=== PATIENT | male | born 1960 | race Caucasian/White ===

== ENCOUNTER 2017-02-07 16:27 | Inpatient (IN) | payer BC ==
[~2017-02-07] VITALS: Ht 182.9 cm; Wt 69.8 kg
[~2017-02-07 16:27] MED LIST: COZAAR; CRESTOR; IMURAN 50MG TAB50 MG PO; LOMOTIL 0.025 M1 TAB; LORTAB 5/500 501 TAB PO; TRICOR 48MG48 MG PO; ZIAC 5/6.25MG T1 TAB PO
[2017-02-07] MEDS ORDERED: CARAFATE 1GM1 G PO (17:34)
[2017-02-07] MEDS ORDERED: PROZAC 20MG20 MG PO (17:37)
[2017-02-07] MEDS ORDERED: PROSCAR 5MG5 MG PO (17:38)
[2017-02-07] MEDS ORDERED: PRILOSEC 20MG20 MG PO (17:39)
[2017-02-07] MEDS ORDERED: VITAMIND3 5000 (17:40)
[2017-02-07] MEDS ORDERED: DEPO-TESTOS100 MG/ML IM (17:44)
[2017-02-07] MEDS ORDERED: MULTIPLE VITAMI1 CAP PO (17:44)
[2017-02-07 17:45] LABS: PH 6 (5-8); SQUAMOUS EPITHELIAL None Seen /hpf; URINE APPEARANCE Hazy; URINE BACTERIA None Seen /hpf; URINE BILIRUBIN Negative (NEGATIVE); URINE BLOOD Negative (NEGATIVE); URINE COLOR Amber; URINE GLUCOSE Negative (NEGATIVE); URINE KETONE Negative (NEGATIVE); URINE RBC 0-2 /hpf; URINE UROBILINOGEN Negative (NEGATIVE); URINE WBC 0-2 /hpf
[2017-02-07 17:46] LABS: ADJUSTED CALCIUM 9.3 mg/dL (8.4-10.2); ALBUMIN 2.9 gm/dL (3.5-5.0); BILIRUBIN,TOTAL 0.6 mg/dL (0.0-1.0); CALCIUM 8.4 mg/dL (8.4-10.2); CREATININE, serum 1.07 mg/dL (0.66-1.25); POTASSIUM 4.7 mmol/L (3.4-5.0); TOTAL PROTEIN 6.9 gm/dL (6.4-8.2)
[2017-02-07 17:48] LABS: MEAN CELL VOLUME 86 fl (80.0-100.0); MEAN CORPUSCULAR HGB CONC 32 g/dl (33.0-37.0); MEAN PLATELET VOLUME 9.2 fl (7.4-10.4); PLATELET COUNT 717 K/mm3 (130-400); RED BLOOD COUNT 3.44 M/mm3 (4.20-5.60); REDCELL DISTRIBUTION WIDTH-CV 16.8 % (11.5-14.5); WHITE BLOOD COUNT 14.9 K/mm3 (4.8-10.8)
[2017-02-07 18:07] LABS: HEMATOCRIT 29.7 % (42.0-52.0); HEMOGLOBIN 9.4 g/dl (13.5-18.0); MEAN CORPUSCULAR HEMOGLOBIN 27 pg (27.0-31.0)
[2017-02-07 18:10] LABS: ADD PATHOLOGY DIFF REVIEW NO
[2017-02-07 18:40] LABS: ANISOCYTOSIS 1+; BAND 18 % (0-10); HYPOCHROMIA 1+; NEUTROPHILS 62 % (42.0-75.2); PLATELET ESTIMATE INCREASED (NORMAL); POLYCHROMASIA 1+; TOTAL CELLS COUNTED 100
[2017-02-07 21:43] VITALS: BP 101/57; PULSE 104; TEMP 99.3
[2017-02-08 06:02] LABS: MEAN CELL VOLUME 84 fl (80.0-100.0); MEAN CORPUSCULAR HGB CONC 32 g/dl (33.0-37.0); MEAN PLATELET VOLUME 8.9 fl (7.4-10.4); RED BLOOD COUNT 2.67 M/mm3 (4.20-5.60); REDCELL DISTRIBUTION WIDTH-CV 16.4 % (11.5-14.5); WHITE BLOOD COUNT 14.7 K/mm3 (4.8-10.8)
[2017-02-08 06:55] LABS: HEMATOCRIT 22.4 % (42.0-52.0); HEMOGLOBIN 7.2 g/dl (13.5-18.0); MEAN CORPUSCULAR HEMOGLOBIN 27 pg (27.0-31.0)
[2017-02-08 06:56] LABS: ADD PATHOLOGY DIFF REVIEW NO; PLATELET COUNT 468 K/mm3 (130-400)
[2017-02-08 07:24] LABS: BAND 52 % (0-10); EOSINOPHIL 1 % (0-4); NEUTROPHILS 40 % (42.0-75.2); PLATELET ESTIMATE INCREASED (NORMAL); TOTAL CELLS COUNTED 100
[2017-02-08 09:29] VITALS: BP 94/42; PULSE 96; TEMP 98.2
[2017-02-08 11:21] LABS: HEMATOCRIT 24.5 % (42.0-52.0); HEMOGLOBIN 7.7 g/dl (13.5-18.0)
[2017-02-08 11:27] LABS: CALCIUM 8.2 mg/dL (8.4-10.2); CREATININE, serum 1.09 mg/dL (0.66-1.25); POTASSIUM 4.7 mmol/L (3.4-5.0)
[2017-02-08 13:57] VITALS: BP 123/62; PULSE 93
[2017-02-08 16:11] VITALS: BP 133/67; PULSE 101; TEMP 98.3
[2017-02-08 17:27] VITALS: BP 124/64; PULSE 111; TEMP 99.8
[2017-02-08 22:28] VITALS: BP 115/56; PULSE 102; TEMP 99.5
[2017-02-09] VITALS (11 sets, daily range): BP systolic 103–141; BP diastolic 52–75; PULSE 88–104; TEMP 98–99.6
[2017-02-09 06:13] LABS: MEAN CELL VOLUME 85 fl (80.0-100.0); MEAN CORPUSCULAR HGB CONC 33 g/dl (33.0-37.0); MEAN PLATELET VOLUME 8.8 fl (7.4-10.4); PLATELET COUNT 395 K/mm3 (130-400); RED BLOOD COUNT 2.35 M/mm3 (4.20-5.60); REDCELL DISTRIBUTION WIDTH-CV 16.5 % (11.5-14.5); WHITE BLOOD COUNT 7.3 K/mm3 (4.8-10.8)
[2017-02-09 06:22] LABS: HEMOGLOBIN 6.5 g/dl (13.5-18.0); MEAN CORPUSCULAR HEMOGLOBIN 28 pg (27.0-31.0)
[2017-02-09 06:31] LABS: ADJUSTED CALCIUM 9.2 mg/dL (8.4-10.2); BILIRUBIN,TOTAL 0.4 mg/dL (0.0-1.0); C-REACTIVE PROTEIN 8.8 mg/dL (0.0-0.9); CALCIUM 7.6 mg/dL (8.4-10.2); CREATININE, serum 0.86 mg/dL (0.66-1.25); POTASSIUM 3.8 mmol/L (3.4-5.0)
[2017-02-09 08:57] LABS: RETIC % 1.5 % (0.5-3.52)
[2017-02-09 10:07] LABS: TOTAL IRON BINDING CAPACITY 177 ug/dL (261-462)
[2017-02-09 10:34] LABS: FERRITIN 96 ng/mL (18-464)
[2017-02-09 15:48] LABS: HEMATOCRIT 22.2 % (42.0-52.0); HEMOGLOBIN 7.3 g/dl (13.5-18.0)
[2017-02-10 00:07] VITALS: BP 107/64; PULSE 98; TEMP 97.9
[2017-02-10 04:06] VITALS: BP 113/67; PULSE 88; TEMP 98
[2017-02-10 04:43] LABS: BASO % 0.6 % (0.0-2.0); GRAN # 2.7 (1.4-6.5); GRAN % 78.3 % (42.2-75.2); LYMPH # 0.4 (1.2-3.4); LYMPH % 12.6 % (20.0-51.0); MEAN CELL VOLUME 84 fl (80.0-100.0); MEAN CORPUSCULAR HGB CONC 33 g/dl (33.0-37.0); MEAN PLATELET VOLUME 8.9 fl (7.4-10.4); MONO # 0.3 (0.1-0.6); MONO % 7.3 % (1.7-9.3); PLATELET COUNT 374 K/mm3 (130-400); RED BLOOD COUNT 2.89 M/mm3 (4.20-5.60); REDCELL DISTRIBUTION WIDTH-CV 16.2 % (11.5-14.5); WHITE BLOOD COUNT 3.4 K/mm3 (4.8-10.8)
[2017-02-10 04:44] LABS: HEMATOCRIT 24.2 % (42.0-52.0); HEMOGLOBIN 7.9 g/dl (13.5-18.0); MEAN CORPUSCULAR HEMOGLOBIN 27 pg (27.0-31.0)
[2017-02-10 07:56] LABS: CALCIUM 7.7 mg/dL (8.4-10.2); CREATININE, serum 0.75 mg/dL (0.66-1.25); MAGNESIUM 1.8 mg/dL (1.6-2.3)
[2017-02-10 10:09] VITALS: BP 121/69; PULSE 84; TEMP 97.8
[2017-02-10 13:41] VITALS: BP 132/69; PULSE 77; TEMP 97.9
[2017-02-10 17:25] VITALS: BP 135/72; PULSE 88; TEMP 97.5
[2017-02-10 23:11] VITALS: BP 124/60; PULSE 82; TEMP 97.9
[2017-02-11 01:47] VITALS: BP 129/74; PULSE 81; TEMP 97.6
[2017-02-11 05:47] VITALS: BP 130/71; PULSE 65; TEMP 97.7
[2017-02-11 08:50] VITALS: BP 131/70; PULSE 78; TEMP 97.6
[2017-02-11] MEDS ORDERED: FERROUS SU325 MG/TAB PO (09:15)
[2017-02-11] MEDS ORDERED: FLAGYL500 MG PO (09:15)
[2017-02-11] MEDS ORDERED: CIPRO 500MG TA500 MG PO (09:15)
[2017-02-11] MEDS ORDERED: PREDNISONE10 MG PO (09:25)
[2017-02-11] MEDS ORDERED: FENTANYL 25 MCG TD ×2 (09:27→10:43)
[2017-02-11] MEDS ORDERED: NORCO 325 MG-7.1 TAB PO ×2 (09:27→10:43)
[2017-02-11] MEDS ORDERED: ZOFRAN ODT4 MG PO (10:42)
== END 2017-02-11 13:55 | disposition home or self-care (01) | DRG 391 ==
LOC: COL.ER 16:27 → SURG 20:46
PROVIDERS: Family Medicine; Internal Medicine Gastroenterology; Nurse Practitioner
DX: K52.9 Noninfective gastroenteritis and colitis, unspecified (principal); E43 Unspecified severe protein-calorie malnutrition; K50.00 Crohn's disease of small intestine without complications; I10 Essential (primary) hypertension; D64.9 Anemia, unspecified; Z87.891 Personal history of nicotine dependence
CPT/HCPCS: 99222-AI; 99232-AI; 99233-AI; 99239; C9113; J0744; J1170; J2405; J2930; J7030; P9016; Q9967

== ENCOUNTER 2017-02-16 02:01 | Emergency (ER) | payer BC ==
[~2017-02-16] VITALS: Ht 182.9 cm; Wt 68.2 kg
[~2017-02-16 02:01] MED LIST changes: +CARAFATE 1GM1 G PO; +CIPRO 500MG TA500 MG PO; +DEPO-TESTOS100 MG/ML IM; +FENTANYL 25 MCG TD; +FERROUS SU325 MG/TAB PO; +FLAGYL500 MG PO; +MULTIPLE VITAMI1 CAP PO; +NORCO 325 MG-7.1 TAB PO; +PREDNISONE10 MG PO; +PRILOSEC 20MG20 MG PO; +PROSCAR 5MG5 MG PO; +PROZAC 20MG20 MG PO; +VITAMIND3 5000; +ZOFRAN ODT4 MG PO
[2017-02-16 02:03] VITALS: TEMP 98
[2017-02-16 02:35] LABS: MEAN CELL VOLUME 86 fl (80.0-100.0); MEAN CORPUSCULAR HGB CONC 32 g/dl (33.0-37.0); MEAN PLATELET VOLUME 9.3 fl (7.4-10.4); PLATELET COUNT 437 K/mm3 (130-400); RED BLOOD COUNT 2.56 M/mm3 (4.20-5.60); WHITE BLOOD COUNT 14.5 K/mm3 (4.8-10.8)
[2017-02-16 02:40] LABS: ADD PATHOLOGY DIFF REVIEW NO; HEMATOCRIT 22.1 % (42.0-52.0); HEMOGLOBIN 7.1 g/dl (13.5-18.0); MEAN CORPUSCULAR HEMOGLOBIN 28 pg (27.0-31.0)
[2017-02-16 02:48] LABS: BILIRUBIN,TOTAL 0.3 mg/dL (0.0-1.0); C-REACTIVE PROTEIN 1.2 mg/dL (0.0-0.9); CALCIUM 7.4 mg/dL (8.4-10.2); CREATININE, serum 1.03 mg/dL (0.66-1.25); POTASSIUM 3.6 mmol/L (3.4-5.0); TOTAL PROTEIN 4.8 gm/dL (6.4-8.2)
[2017-02-16 02:55] LABS: INR 1.3 (0.8-3.0); PROTHROMBIN TIME 14.4 SECONDS (9.7-12.8)
[2017-02-16 03:21] LABS: BAND 43 % (0-10); METAMYELOCYTE 1 % (0-0); NEUTROPHILS 37 % (42.0-75.2); TOTAL CELLS COUNTED 100
[2017-02-16 04:48] VITALS: BP 139/81; PULSE 79
== END 2017-02-16 04:48 | disposition short-term general hospital (02) ==
LOC: COL.ER 02:01
PROVIDERS: Family Medicine
DX: K92.2 Gastrointestinal hemorrhage, unspecified (principal); I95.9 Hypotension, unspecified; D64.9 Anemia, unspecified
CPT/HCPCS: J7030; Q9967

== ENCOUNTER → 2017-03-01 | Outpatient (CLI) | payer BC | LOC: COL.RAD 09:17 | DX: K26.7 Chronic duodenal ulcer without hemorrhage or perforation (principal); K63.89 Other specified diseases of intestine | CPT/HCPCS: Q9967 ==

== ENCOUNTER 2017-04-24 03:25 | Inpatient (IN) | payer BC ==
[2017-04-24] VITALS (496 sets, daily range): BP systolic 125–188; BP diastolic 76–112; PULSE 97–134; TEMP 97.2–98.5; O2SAT 93–100
[~2017-04-24] VITALS: Ht 182.9 cm; Wt 73.0 kg
[2017-04-24] MEDS ORDERED: LOMOTIL 0.025 M1 TAB PO (03:27)
[2017-04-24] MEDS ORDERED: IMURAN 50MG TAB50 MG PO (03:29)
[2017-04-24 03:46] LABS: BASO # 0.1 (0.0-0.2); BASO % 0.4 % (0.0-2.0); EOS % 0.3 % (0-4.0); GRAN # 9.5 (1.4-6.5); GRAN % 77.8 % (42.2-75.2); HEMATOCRIT 50.1 % (42.0-52.0); HEMOGLOBIN 16.4 g/dl (13.5-18.0); LYMPH # 1.6 (1.2-3.4); LYMPH % 12.8 % (20.0-51.0); MEAN CELL VOLUME 94 fl (80.0-100.0); MEAN CORPUSCULAR HEMOGLOBIN 31 pg (27.0-31.0); MEAN CORPUSCULAR HGB CONC 33 g/dl (33.0-37.0); MEAN PLATELET VOLUME 9.8 fl (7.4-10.4); MONO % 8.4 % (1.7-9.3); PLATELET COUNT 315 K/mm3 (130-400); RED BLOOD COUNT 5.32 M/mm3 (4.20-5.60); WHITE BLOOD COUNT 12.2 K/mm3 (4.8-10.8)
[2017-04-24 03:58] LABS: ADJUSTED CALCIUM 9.5 mg/dL (8.4-10.2); ALANINE AMINOTRANSFERASE 32 U/L (21-72); ALBUMIN 4.6 gm/dL (3.5-5.0); ALKALINE PHOSPHATASE 62 U/L (50-136); ANION GAP 11 mmol/L (7-16); BILIRUBIN,TOTAL 0.5 mg/dL (0.0-1.0); BLOOD UREA NITROGEN 8 mg/dL (9-20); CARBON DIOXIDE 22 mmol/L (22-30); CHLORIDE 104 mmol/L (98-107); CREATININE, serum 0.79 mg/dL (0.66-1.25); GLUCOSE 112 mg/dL (74-106); LIPASE 39 U/L (23-300); SODIUM 137 mmol/L (137-145); TOTAL PROTEIN 7.9 gm/dL (6.4-8.2)
[2017-04-24 04:01] LABS: C-REACTIVE PROTEIN < 0.5 mg/dL (0.0-0.9)
[2017-04-24] MEDS ORDERED: COZAAR100 MG PO (07:38)
[2017-04-24] MEDS ORDERED: ZIAC 10/6.25M1 UDTAB PO (07:38)
[2017-04-24] MEDS ORDERED: HUMIRA40 MG/0.8 SQ (07:39)
[2017-04-24] MEDS ORDERED: LOFIBRA160 MG PO (07:39)
[2017-04-24 10:06] LABS: PROTHROMBIN TIME 11.3 SECONDS (9.7-12.8)
[2017-04-24 10:09] LABS: PARTIAL THROMBOPLASTIN TIME 30.3 SECONDS (26.0-37.0)
[2017-04-24 16:26] LABS: MEAN CELL VOLUME 96 fl (80.0-100.0); MEAN CORPUSCULAR HEMOGLOBIN 31 pg (27.0-31.0); MEAN CORPUSCULAR HGB CONC 32 g/dl (33.0-37.0); MEAN PLATELET VOLUME 9.9 fl (7.4-10.4); PLATELET COUNT 283 K/mm3 (130-400); RED BLOOD COUNT 4.68 M/mm3 (4.20-5.60)
[2017-04-24 16:29] LABS: ADD PATHOLOGY DIFF REVIEW NO; HEMOGLOBIN 14.4 g/dl (13.5-18.0); WHITE BLOOD COUNT 20.3 K/mm3 (4.8-10.8)
[2017-04-24 16:42] LABS: ADJUSTED CALCIUM 8.9 mg/dL (8.4-10.2); ALBUMIN 2.7 gm/dL (3.5-5.0); BILIRUBIN,TOTAL 0.5 mg/dL (0.0-1.0); CALCIUM 7.9 mg/dL (8.4-10.2); CREATININE, serum 0.83 mg/dL (0.66-1.25); POTASSIUM 4.3 mmol/L (3.4-5.0); TOTAL PROTEIN 5.3 gm/dL (6.4-8.2)
[2017-04-24 16:43] LABS: BAND 31 % (0-10); LYMPHOCYTE 2 % (20.0-51.0); NEUTROPHILS 62 % (42.0-75.2); PLATELET ESTIMATE NORMAL (NORMAL); TOTAL CELLS COUNTED 100
[2017-04-25] VITALS (663 sets, daily range): BP systolic 124–159; BP diastolic 78–88; PULSE 103–118; TEMP 97.7–100.1; O2SAT 89–100
[2017-04-25 05:24] LABS: BASO % 0.1 % (0.0-2.0); GRAN # 12.5 (1.4-6.5); HEMATOCRIT 42.6 % (42.0-52.0); HEMOGLOBIN 13.3 g/dl (13.5-18.0); LYMPH # 0.8 (1.2-3.4); LYMPH % 5.5 % (20.0-51.0); MEAN CELL VOLUME 99 fl (80.0-100.0); MEAN CORPUSCULAR HEMOGLOBIN 31 pg (27.0-31.0); MEAN CORPUSCULAR HGB CONC 31 g/dl (33.0-37.0); MEAN PLATELET VOLUME 10.3 fl (7.4-10.4); MONO # 1.5 (0.1-0.6); PLATELET COUNT 260 K/mm3 (130-400); RED BLOOD COUNT 4.32 M/mm3 (4.20-5.60); WHITE BLOOD COUNT 14.9 K/mm3 (4.8-10.8)
[2017-04-25 05:34] LABS: CALCIUM 8.2 mg/dL (8.4-10.2); CREATININE, serum 0.85 mg/dL (0.66-1.25); MAGNESIUM 1.4 mg/dL (1.6-2.3); POTASSIUM 4.6 mmol/L (3.4-5.0)
[2017-04-26 02:00] VITALS: BP 153/88; PULSE 105; TEMP 98.3
[2017-04-26 06:00] VITALS: BP 157/88; PULSE 97; TEMP 98.2
[2017-04-26 06:49] LABS: ADD PATHOLOGY DIFF REVIEW NO
[2017-04-26 07:04] LABS: CALCIUM 7.9 mg/dL (8.4-10.2); CREATININE, serum 0.72 mg/dL (0.66-1.25); MAGNESIUM 1.7 mg/dL (1.6-2.3); POTASSIUM 3.8 mmol/L (3.4-5.0)
[2017-04-26 07:22] LABS: HEMATOCRIT 38.3 % (42.0-52.0); MEAN CELL VOLUME 99 fl (80.0-100.0); MEAN CORPUSCULAR HEMOGLOBIN 31 pg (27.0-31.0); MEAN CORPUSCULAR HGB CONC 31 g/dl (33.0-37.0); MEAN PLATELET VOLUME 10.6 fl (7.4-10.4); PLATELET COUNT 225 K/mm3 (130-400); RED BLOOD COUNT 3.89 M/mm3 (4.20-5.60); WHITE BLOOD COUNT 7.2 K/mm3 (4.8-10.8)
[2017-04-26 07:46] LABS: BAND 9 % (0-10); EOSINOPHIL 1 % (0-4); LYMPHOCYTE 16 % (20.0-51.0); NEUTROPHILS 66 % (42.0-75.2); PLATELET ESTIMATE NORMAL (NORMAL); TOTAL CELLS COUNTED 100
[2017-04-26 09:36] VITALS: BP 156/92; PULSE 95; TEMP 98.5
[2017-04-26 13:40] VITALS: BP 162/88; PULSE 92; TEMP 98.5
[2017-04-26 17:16] VITALS: BP 155/93; PULSE 97; TEMP 98.8
[2017-04-26 21:55] VITALS: BP 153/86; PULSE 99; TEMP 98.2
[2017-04-27 02:10] VITALS: BP 132/84; PULSE 87; TEMP 98.2
[2017-04-27 05:38] VITALS: BP 135/81; PULSE 90; TEMP 97.6
[2017-04-27 06:56] LABS: BASO % 0.5 % (0.0-2.0); EOS # 0.1 (0.0-0.7); EOS % 1.7 % (0-4.0); GRAN # 2.7 (1.4-6.5); GRAN % 64.5 % (42.2-75.2); HEMATOCRIT 37.3 % (42.0-52.0); LYMPH # 0.8 (1.2-3.4); LYMPH % 18.4 % (20.0-51.0); MEAN CELL VOLUME 97 fl (80.0-100.0); MEAN CORPUSCULAR HEMOGLOBIN 31 pg (27.0-31.0); MEAN CORPUSCULAR HGB CONC 32 g/dl (33.0-37.0); MEAN PLATELET VOLUME 10.1 fl (7.4-10.4); MONO # 0.6 (0.1-0.6); MONO % 14.7 % (1.7-9.3); PLATELET COUNT 220 K/mm3 (130-400); RED BLOOD COUNT 3.86 M/mm3 (4.20-5.60); WHITE BLOOD COUNT 4.2 K/mm3 (4.8-10.8)
[2017-04-27 06:58] LABS: HEMOGLOBIN 11.9 g/dl (13.5-18.0)
[2017-04-27 07:14] LABS: CALCIUM 8.2 mg/dL (8.4-10.2); CREATININE, serum 0.64 mg/dL (0.66-1.25); POTASSIUM 3.7 mmol/L (3.4-5.0)
[2017-04-27 09:09] VITALS: BP 150/86; PULSE 92; TEMP 89.1
[2017-04-27 13:57] VITALS: BP 146/86; PULSE 96; TEMP 98.6
[2017-04-27 20:52] VITALS: BP 158/92; PULSE 91; TEMP 98
[2017-04-28 03:02] VITALS: BP 160/96; PULSE 85; TEMP 98
[2017-04-28 05:58] VITALS: BP 148/95; PULSE 84; TEMP 98.2
[2017-04-28 08:59] VITALS: BP 166/91; PULSE 76; TEMP 97.9
[2017-04-28] MEDS ORDERED: FENTANYL 25 MCG TD (09:50)
[2017-04-28 12:32] VITALS: BP 151/86; PULSE 77; TEMP 98.2
[2017-04-28 16:51] VITALS: BP 162/82; PULSE 93; TEMP 97.5
[2017-04-28 22:52] VITALS: BP 149/85; PULSE 84; TEMP 97.7
[2017-04-29 01:52] VITALS: BP 153/94; PULSE 93; TEMP 98.1
[2017-04-29 06:32] VITALS: BP 156/93; PULSE 95; TEMP 97.7
[2017-04-29 07:15] LABS: BASO % 0.5 % (0.0-2.0); EOS # 0.1 (0.0-0.7); EOS % 2.3 % (0-4.0); GRAN # 4.2 (1.4-6.5); GRAN % 68.8 % (42.2-75.2); HEMATOCRIT 39.2 % (42.0-52.0); HEMOGLOBIN 12.6 g/dl (13.5-18.0); LYMPH # 1.1 (1.2-3.4); LYMPH % 17.9 % (20.0-51.0); MEAN CELL VOLUME 94 fl (80.0-100.0); MEAN CORPUSCULAR HEMOGLOBIN 30 pg (27.0-31.0); MEAN CORPUSCULAR HGB CONC 32 g/dl (33.0-37.0); MEAN PLATELET VOLUME 9.9 fl (7.4-10.4); MONO # 0.6 (0.1-0.6); MONO % 10.2 % (1.7-9.3); PLATELET COUNT 269 K/mm3 (130-400); RED BLOOD COUNT 4.17 M/mm3 (4.20-5.60); WHITE BLOOD COUNT 6.1 K/mm3 (4.8-10.8)
[2017-04-29 07:24] LABS: CALCIUM 8.5 mg/dL (8.4-10.2); CREATININE, serum 0.67 mg/dL (0.66-1.25); POTASSIUM 3.6 mmol/L (3.4-5.0)
[2017-04-29 09:22] VITALS: BP 150/84; PULSE 86; TEMP 98.1
[2017-04-29] MEDS ORDERED: ZOFRAN 4MG T4 MG/TAB PO (12:03)
[2017-04-29] MEDS ORDERED: FENTANYL 25 MCG TD (12:03)
== END 2017-04-29 13:55 | disposition home or self-care (01) | DRG 335 ==
LOC: COL.ER 03:25 → SURG 04:45 → ICU 15:33 → SURG 04-25 11:15
PROVIDERS: Family Medicine; Internal Medicine; Nurse Practitioner Family; Physician Assistant; Surgery
PROC: 0DNB0ZZ Release Ileum, Open Approach (ICD-10-PCS; 2017-04-24)
PROC: 0WJP4ZZ Inspection of Gastrointestinal Tract, Percutaneous Endoscopic Approach (ICD-10-PCS; 2017-04-24)
PROC: 8E0W0CZ Robotic Assisted Procedure of Trunk Region, Open Approach (ICD-10-PCS; 2017-04-24)
PROC: 0DN90ZZ Release Duodenum, Open Approach (ICD-10-PCS; principal; 2017-04-24 10:30)
PROC: 0DNU0ZZ Release Omentum, Open Approach (ICD-10-PCS; 2017-04-24 10:30)
DX: K45.0 Other specified abdominal hernia with obstruction, without gangrene (principal); K56.2 Volvulus; K56.51 Intestinal adhesions [bands], with partial obstruction; K50.912 Crohn's disease, unspecified, with intestinal obstruction; E87.1 Hypo-osmolality and hyponatremia; I10 Essential (primary) hypertension; D64.9 Anemia, unspecified
CPT/HCPCS: 99223-AI; 99231-AI; 99232-AI; 99233-AI; 99239; A4314; C1751; C9113; J0330; J0360; J1100; J1170; J1644; J1650; J2405; J2550; J2704; J3010; J3475; J7030; J7120; Q9967

== ENCOUNTER → 2019-03-21 | Outpatient (CLI) | payer BC ==
[~2019-03-21] MED LIST changes: +COZAAR100 MG PO; +HUMIRA40 MG/0.8 SQ; +LOFIBRA160 MG PO; +LOMOTIL 0.025 M1 TAB PO; +ZIAC 10/6.25M1 UDTAB PO; +ZOFRAN 4MG T4 MG/TAB PO
== END ==
LOC: COL.RAD 07:05
DX: K50.00 Crohn's disease of small intestine without complications (principal)
CPT/HCPCS: Q9967

== ENCOUNTER 2022-01-14 13:36 | Emergency (ER) | payer OTHER, BC ==
[~2022-01-14] VITALS: Ht 177.8 cm; Wt 81.8 kg
[2022-01-14 13:40] VITALS: BP 167/95; TEMP 99.4
[2022-01-14] MEDS ORDERED: FLEXERIL 1010 MG/TAB PO (15:06)
[2022-01-14 15:15] VITALS: PULSE 88
== END 2022-01-14 15:15 | disposition home or self-care (01) ==
LOC: COL.ER 13:36
DX: M54.2 Cervicalgia (principal); V89.2XXA Person injured in unspecified motor-vehicle accident, traffic, initial encounter; Y92.410 Unspecified street and highway as the place of occurrence of the external cause
CPT/HCPCS: J1885; J2360